=== PATIENT | male | born 1960 | race African-American/Black ===

== ENCOUNTER 2023-11-26 20:24 | Inpatient (IN) | payer OTHER ==
[2023-11-26] MEDS ORDERED: FAMOTIDINE 20 MG/50 ML IVPB 20 MG/50 ML MG IVPB ONE (21:30)
[2023-11-26] MEDS ORDERED: ACETAMINOPHEN INJECTION 100 ML IVPB ONE (21:30)
[2023-11-26] MEDS: ACETAMINOPHEN 1000 MG/100 ML BAG IVPB ONE (21:51)
[2023-11-26] MEDS: PANTOPRAZOLE SODIUM 40 MG VIAL IVPUSH ONE (21:52)
[2023-11-26 21:58] LABS: BASO % 0.6 % (0-2.0); EOS % 1.1 % (0-4.5); HEMATOCRIT 30.9 % (35.4-49); HEMOGLOBIN 10.3 GM/dL (11.7-16.9); LYMPH % 51.7 % (8-40); MCH 27.5 pg (25.7-33.7); MCHC 33.2 g/dl (32.0-35.9); MEAN CELL VOLUME 82.7 fl (80-96); MEAN PLT VOLUME 8.9 fl (7.5-11.1); MONO % 9.9 % (3.8-10.2); NEUT % 36.7 % (42.8-82.8); PLATELET COUNT 190 10^3/uL (134-434); RBC 3.74 M/mm3 (4.00-5.60); RDW 14.7 % (11.9-15.9); WHITE BLOOD COUNT 4.6 K/mm3 (4.0-10.0)
[2023-11-26 22:04] LABS: INR 1.12 (0.83-1.09)
[2023-11-26 22:07] LABS: ACTIVATED PTT 31.1 SECONDS (25.2-36.5)
[2023-11-26 22:17] LABS: POTASSIUM 4.1 mmol/L (3.5-5.1)
[2023-11-26 22:19] LABS: ALBUMIN 2.9 g/dl (3.4-5.0); BLOOD UREA NITROGEN 16.5 mg/dL (7-18); CALCIUM 8.4 mg/dL (8.5-10.1); MAGNESIUM 1.9 mg/dL (1.8-2.4)
[2023-11-26 22:22] LABS: CREATININE 0.9 mg/dL (0.55-1.3)
[2023-11-26 22:24] LABS: BILIRUBIN,TOTAL 0.2 mg/dL (0.2-1); TOT PROT 6.8 g/dl (6.4-8.2)
[2023-11-26] MEDS: FAMOTIDINE 20 MG/50 ML IVPB 20 MG/50 ML MG IVPB ONE ×2 (22:34)
[2023-11-27] MEDS: HYDROCORTISONE ACETATE 25 MG/SUPP.RECT RC SCH (00:50)
[2023-11-27 08:05] LABS: POTASSIUM 4.2 mmol/L (3.5-5.1)
[2023-11-27 08:15] LABS: BLOOD UREA NITROGEN 19.9 mg/dL (7-18)
[2023-11-27 08:17] LABS: ALBUMIN 2.6 g/dl (3.4-5.0); CALCIUM 8.4 mg/dL (8.5-10.1)
[2023-11-27 08:19] LABS: MAGNESIUM 1.8 mg/dL (1.8-2.4)
[2023-11-27 08:20] LABS: BILIRUBIN,TOTAL 0.3 mg/dL (0.2-1); CREATININE 0.9 mg/dL (0.55-1.3)
[2023-11-27 08:21] LABS: PHOSPHOROUS 1.9 mg/dL (2.5-4.9); TOT PROT 6.1 g/dl (6.4-8.2)
[2023-11-27 08:32] LABS: BASO % 0.3 % (0-2.0); EOS % 0.9 % (0-4.5); HEMATOCRIT 29.3 % (35.4-49); HEMOGLOBIN 9.7 GM/dL (11.7-16.9); LYMPH % 40.5 % (8-40); MCH 27.5 pg (25.7-33.7); MEAN CELL VOLUME 83.2 fl (80-96); MEAN PLT VOLUME 8.8 fl (7.5-11.1); MONO % 10.7 % (3.8-10.2); NEUT % 47.6 % (42.8-82.8); PLATELET COUNT 202 10^3/uL (134-434); RBC 3.52 M/mm3 (4.00-5.60); RDW 14.5 % (11.9-15.9); RETICULOCYTES 1.36 % (0.5-1.5); WHITE BLOOD COUNT 4.8 K/mm3 (4.0-10.0)
[2023-11-27] MEDS ORDERED: PANTOPRAZOLE SODIUM 40 MG VIAL ONE (09:56)
[2023-11-27] MEDS ORDERED: PANTOPRAZOLE SODIUM 40 MG VIAL IVPUSH SCH (10:00)
[2023-11-27] MEDS: PANTOPRAZOLE SODIUM 40 MG VIAL IVPUSH SCH (10:01)
[2023-11-27] MEDS ORDERED: [UNRECOGNIZED DRUG - OTHER] PO PRN (12:08)
[2023-11-27 12:11] VITALS: BMI 32.2
[2023-11-27 13:02] LABS: BASO % 0.2 % (0-2.0); EOS % 0.6 % (0-4.5); HEMATOCRIT 27.3 % (35.4-49); HEMOGLOBIN 9.2 GM/dL (11.7-16.9); LYMPH % 49.1 % (8-40); MCH 27.7 pg (25.7-33.7); MCHC 33.8 g/dl (32.0-35.9); MEAN CELL VOLUME 82.1 fl (80-96); MEAN PLT VOLUME 8.2 fl (7.5-11.1); MONO % 8.4 % (3.8-10.2); NEUT % 41.7 % (42.8-82.8); PLATELET COUNT 202 10^3/uL (134-434); RBC 3.32 M/mm3 (4.00-5.60); RDW 14.6 % (11.9-15.9); WHITE BLOOD COUNT 4.3 K/mm3 (4.0-10.0)
[2023-11-27] MEDS: PANTOPRAZOLE 40 MG TABLET PO SCH (21:26)
[2023-11-27] MEDS: ACETAMINOPHEN 1000 MG/100 ML BAG IVPB ONE (22:03)
[2023-11-27] MEDS: LACTATED RINGERS SOLUTION 1,000 ML/1,000 ML INFUS.BAG IV SCH (23:05)
[2023-11-27] MEDS: NAPH,MB-DB/K PH,MBDB POWDER PACKET PO ONE (23:05)
[2023-11-27] MEDS ORDERED: PANTOPRAZOLE 20 MG TABLET PO PRN (23:32)
[2023-11-28 09:42] LABS: BASO % 0.3 % (0-2.0); EOS % 0.8 % (0-4.5); HEMATOCRIT 24.5 % (35.4-49); HEMOGLOBIN 8.2 GM/dL (11.7-16.9); LYMPH % 36.9 % (8-40); MCH 27.7 pg (25.7-33.7); MCHC 33.4 g/dl (32.0-35.9); MEAN CELL VOLUME 82.9 fl (80-96); MEAN PLT VOLUME 9.1 fl (7.5-11.1); MONO % 8.8 % (3.8-10.2); NEUT % 53.2 % (42.8-82.8); PLATELET COUNT 201 10^3/uL (134-434); RBC 2.96 M/mm3 (4.00-5.60); RDW 14.6 % (11.9-15.9); WHITE BLOOD COUNT 5.3 K/mm3 (4.0-10.0)
[2023-11-28 10:00] LABS: POTASSIUM 4.3 mmol/L (3.5-5.1)
[2023-11-28 10:02] LABS: CALCIUM 8.1 mg/dL (8.5-10.1)
[2023-11-28 10:03] LABS: BLOOD UREA NITROGEN 19.9 mg/dL (7-18)
[2023-11-28 10:06] LABS: CREATININE 0.9 mg/dL (0.55-1.3)
[2023-11-28] MEDS: FINASTERIDE 5 MG TABLET (FP) PO SCH (10:37)
[2023-11-28] MEDS: TAMSULOSIN HCL 0.4 MG CAP PO SCH (10:37)
[2023-11-28] MEDS: amLODIPine BESYLATE 5 MG TABLET (FP) PO SCH (10:38)
[2023-11-28 15:35] LABS: HEMATOCRIT 24.8 % (35.4-49); HEMOGLOBIN 8.2 GM/dL (11.7-16.9); MCH 27.8 pg (25.7-33.7); MCHC 33.2 g/dl (32.0-35.9); MEAN CELL VOLUME 83.8 fl (80-96); PLATELET COUNT 207 10^3/uL (134-434); RBC 2.95 M/mm3 (4.00-5.60); RDW 14.6 % (11.9-15.9); WHITE BLOOD COUNT 7.4 K/mm3 (4.0-10.0)
[2023-11-28] MEDS: IRON SUCROSE INJECTION 200 MG in SODIUM CHLORIDE 90 ML IVPB ONE (15:46)
[2023-11-29 08:56] LABS: BASO % 0.3 % (0-2.0); EOS % 0.4 % (0-4.5); HEMATOCRIT 20.4 % (35.4-49); LYMPH % 25.6 % (8-40); MCH 28.3 pg (25.7-33.7); MCHC 34.2 g/dl (32.0-35.9); MEAN CELL VOLUME 82.8 fl (80-96); MEAN PLT VOLUME 8.8 fl (7.5-11.1); MONO % 11.3 % (3.8-10.2); NEUT % 62.4 % (42.8-82.8); PLATELET COUNT 198 10^3/uL (134-434); RBC 2.47 M/mm3 (4.00-5.60); RDW 14.5 % (11.9-15.9); WHITE BLOOD COUNT 6.5 K/mm3 (4.0-10.0)
[2023-11-29 09:03] LABS: POTASSIUM 4.1 mmol/L (3.5-5.1)
[2023-11-29 09:07] LABS: CALCIUM 7.8 mg/dL (8.5-10.1)
[2023-11-29 09:09] LABS: BLOOD UREA NITROGEN 18.2 mg/dL (7-18)
[2023-11-29 12:48] LABS: HEMATOCRIT 21.7 % (35.4-49); MCH 27.3 pg (25.7-33.7); MCHC 32.5 g/dl (32.0-35.9); MEAN PLT VOLUME 8.2 fl (7.5-11.1); PLATELET COUNT 210 10^3/uL (134-434); RBC 2.58 M/mm3 (4.00-5.60); RDW 14.5 % (11.9-15.9); WHITE BLOOD COUNT 7.6 K/mm3 (4.0-10.0)
[2023-11-29] MEDS: ACETAMINOPHEN 325 MG TABLET (FP) PO ONE (15:42)
[2023-11-29] MEDS: SODIUM CHLORIDE 500 ML IV STA (17:38)
[2023-11-29] MEDS: ACETAMINOPHEN 325 MG TABLET (FP) PO PRN (18:09)
[2023-11-29 21:07] LABS: BASO % 0.3 % (0-2.0); EOS % 0.8 % (0-4.5); HEMATOCRIT 17.7 % (35.4-49); LYMPH % 26.9 % (8-40); MCH 28.2 pg (25.7-33.7); MEAN CELL VOLUME 83.1 fl (80-96); MEAN PLT VOLUME 8.4 fl (7.5-11.1); MONO % 11.6 % (3.8-10.2); NEUT % 60.4 % (42.8-82.8); PLATELET COUNT 179 10^3/uL (134-434); RBC 2.12 M/mm3 (4.00-5.60); RDW 14.4 % (11.9-15.9); WHITE BLOOD COUNT 7.5 K/mm3 (4.0-10.0)
[2023-11-30] MEDS: ACETAMINOPHEN 1000 MG/100 ML BAG IVPB ONE (02:40)
[2023-11-30 08:31] LABS: POTASSIUM 3.8 mmol/L (3.5-5.1)
[2023-11-30 08:33] LABS: BASO % 0.5 % (0-2.0); EOS % 0.5 % (0-4.5); HEMATOCRIT 21.1 % (35.4-49); HEMOGLOBIN 7.2 GM/dL (11.7-16.9); LYMPH % 29.9 % (8-40); MCH 28.4 pg (25.7-33.7); MCHC 34.4 g/dl (32.0-35.9); MEAN CELL VOLUME 82.6 fl (80-96); MEAN PLT VOLUME 8.4 fl (7.5-11.1); MONO % 10.7 % (3.8-10.2); NEUT % 58.4 % (42.8-82.8); PLATELET COUNT 214 10^3/uL (134-434); RBC 2.55 M/mm3 (4.00-5.60); RDW 14.9 % (11.9-15.9); WHITE BLOOD COUNT 7.1 K/mm3 (4.0-10.0)
[2023-11-30 08:34] LABS: CALCIUM 7.9 mg/dL (8.5-10.1)
[2023-11-30 08:35] LABS: ALBUMIN 2.6 g/dl (3.4-5.0); BLOOD UREA NITROGEN 13.8 mg/dL (7-18)
[2023-11-30 08:38] LABS: CREATININE 1.1 mg/dL (0.55-1.3)
[2023-11-30 08:39] LABS: TOT PROT 5.7 g/dl (6.4-8.2)
[2023-11-30 08:40] LABS: BILIRUBIN,TOTAL 0.2 mg/dL (0.2-1)
[2023-11-30] MEDS ORDERED: KETAMINE HCL 200 MG/20 ML VIAL ONE (09:05)
[2023-11-30] MEDS: SODIUM CHLORIDE 1,000 ML IV SCH (10:38)
[2023-11-30] MEDS: LACTATED RINGERS SOLUTION 1,000 ML IV SCH (13:25)
[2023-11-30 20:40] LABS: BASO % 0.6 % (0-2.0); EOS % 0.7 % (0-4.5); HEMATOCRIT 22.6 % (35.4-49); HEMOGLOBIN 7.6 GM/dL (11.7-16.9); LYMPH % 29.1 % (8-40); MCH 27.9 pg (25.7-33.7); MCHC 33.5 g/dl (32.0-35.9); MEAN CELL VOLUME 83.3 fl (80-96); MEAN PLT VOLUME 8.5 fl (7.5-11.1); MONO % 10.2 % (3.8-10.2); NEUT % 59.4 % (42.8-82.8); PLATELET COUNT 197 10^3/uL (134-434); RBC 2.71 M/mm3 (4.00-5.60); RDW 15.6 % (11.9-15.9); WHITE BLOOD COUNT 7.5 K/mm3 (4.0-10.0)
[2023-12-01 08:53] LABS: BASO % 0.6 % (0-2.0); EOS % 0.4 % (0-4.5); HEMATOCRIT 22.5 % (35.4-49); HEMOGLOBIN 7.5 GM/dL (11.7-16.9); LYMPH % 26.2 % (8-40); MCH 27.9 pg (25.7-33.7); MCHC 33.5 g/dl (32.0-35.9); MEAN CELL VOLUME 83.2 fl (80-96); MEAN PLT VOLUME 8.2 fl (7.5-11.1); MONO % 12.6 % (3.8-10.2); NEUT % 60.2 % (42.8-82.8); PLATELET COUNT 215 10^3/uL (134-434); RDW 15.5 % (11.9-15.9); WHITE BLOOD COUNT 6.2 K/mm3 (4.0-10.0)
[2023-12-01 09:05] LABS: POTASSIUM 4.1 mmol/L (3.5-5.1)
[2023-12-01 09:07] LABS: CALCIUM 8.2 mg/dL (8.5-10.1)
[2023-12-01 09:08] LABS: BLOOD UREA NITROGEN 9.4 mg/dL (7-18)
[2023-12-01 09:11] LABS: CREATININE 1.2 mg/dL (0.55-1.3)
[2023-12-01] MEDS: PEG 3350/NA SULF BICARB CL/KCL 4000 ML SOLN.RECON PO ONE (17:15)
[2023-12-01] MEDS: BISACODYL 5 MG TABLET.DR (FP) PO ONE (17:15)
[2023-12-01 22:16] LABS: HEMATOCRIT 21.6 % (35.4-49); HEMOGLOBIN 7.4 GM/dL (11.7-16.9); MCH 28.4 pg (25.7-33.7); MCHC 34.2 g/dl (32.0-35.9); MEAN CELL VOLUME 83.3 fl (80-96); MEAN PLT VOLUME 8.1 fl (7.5-11.1); PLATELET COUNT 237 10^3/uL (134-434); RDW 15.5 % (11.9-15.9); WHITE BLOOD COUNT 6.1 K/mm3 (4.0-10.0)
[2023-12-02 11:13] LABS: BASO % 0.4 % (0-2.0); EOS % 0.5 % (0-4.5); HEMATOCRIT 24.7 % (35.4-49); LYMPH % 23.2 % (8-40); MCH 27.3 pg (25.7-33.7); MCHC 32.5 g/dl (32.0-35.9); MEAN CELL VOLUME 84.2 fl (80-96); MEAN PLT VOLUME 7.8 fl (7.5-11.1); MONO % 14.8 % (3.8-10.2); NEUT % 61.1 % (42.8-82.8); PLATELET COUNT 286 10^3/uL (134-434); RBC 2.93 M/mm3 (4.00-5.60); RDW 16.2 % (11.9-15.9); WHITE BLOOD COUNT 5.8 K/mm3 (4.0-10.0)
[2023-12-02 11:35] LABS: POTASSIUM 4.1 mmol/L (3.5-5.1)
[2023-12-02 11:41] LABS: CALCIUM 8.2 mg/dL (8.5-10.1)
[2023-12-02 11:42] LABS: INR 1.11 (0.83-1.09); PROTHROMBIN TIME (PATIENT) 12.9 SEC (9.7-13.0)
[2023-12-02 11:45] LABS: CREATININE 1.1 mg/dL (0.55-1.3)
[2023-12-02 12:44] VITALS: RESP 18
[2023-12-03 08:04] LABS: BASO % 0.4 % (0-2.0); EOS % 0.5 % (0-4.5); HEMATOCRIT 23.8 % (35.4-49); HEMOGLOBIN 8.2 GM/dL (11.7-16.9); LYMPH % 28.8 % (8-40); MCH 28.8 pg (25.7-33.7); MCHC 34.4 g/dl (32.0-35.9); MEAN CELL VOLUME 83.7 fl (80-96); MEAN PLT VOLUME 7.8 fl (7.5-11.1); MONO % 16.8 % (3.8-10.2); NEUT % 53.5 % (42.8-82.8); PLATELET COUNT 316 10^3/uL (134-434); RBC 2.84 M/mm3 (4.00-5.60); RDW 15.7 % (11.9-15.9); WHITE BLOOD COUNT 5.5 K/mm3 (4.0-10.0)
[2023-12-03 08:25] LABS: POTASSIUM 4.2 mmol/L (3.5-5.1)
[2023-12-03 08:26] LABS: CALCIUM 8.3 mg/dL (8.5-10.1)
[2023-12-03 08:28] LABS: BLOOD UREA NITROGEN 6.3 mg/dL (7-18)
[2023-12-03 08:31] LABS: CREATININE 1.1 mg/dL (0.55-1.3)
[2023-12-03 14:51] VITALS: BP 106/72; PULSE 85; TEMP 98.8
== END 2023-12-03 18:53 | disposition home or self-care (01) | DRG 813 ==
LOC: JER 20:24 → JERBED 23:47 → OBSVTOIN 11-27 01:06 → J7W 11-27 11:33
PROVIDERS: ADMIT Internal Medicine; ATTEND Nurse Practitioner
PROC: 30233N1 Transfusion of Nonautologous Red Blood Cells into Peripheral Vein, Percutaneous Approach (ICD-10-PCS; 2023-11-29)
PROC: 0DB68ZX Excision of Stomach, Via Natural or Artificial Opening Endoscopic, Diagnostic (ICD-10-PCS; 2023-11-30)
PROC: 0DBM8ZX Excision of Descending Colon, Via Natural or Artificial Opening Endoscopic, Diagnostic (ICD-10-PCS; 2023-12-02)
PROC: 0DBK8ZX Excision of Ascending Colon, Via Natural or Artificial Opening Endoscopic, Diagnostic (ICD-10-PCS; principal; 2023-12-02 11:00)
DX: D68.32 Hemorrhagic disorder due to extrinsic circulating anticoagulants (principal); K25.0 Acute gastric ulcer with hemorrhage; K25.4 Chronic or unspecified gastric ulcer with hemorrhage; D62 Acute posthemorrhagic anemia; T39.315A Adverse effect of propionic acid derivatives, initial encounter; I10 Essential (primary) hypertension; N40.0 Benign prostatic hyperplasia without lower urinary tract symptoms; G43.909 Migraine, unspecified, not intractable, without status migrainosus; D64.9 Anemia, unspecified; K64.8 Other hemorrhoids; D12.2 Benign neoplasm of ascending colon; D12.4 Benign neoplasm of descending colon; K57.30 Diverticulosis of large intestine without perforation or abscess without bleeding; K29.70 Gastritis, unspecified, without bleeding; R50.9 Fever, unspecified; N28.1 Cyst of kidney, acquired; R59.0 Localized enlarged lymph nodes
CPT/HCPCS: 0241U-QW; 36415; 36430; 71045-TC-FY; 74177-TC; 80048; 80053; 82272; 82728; 82962; 83540; 83550; 83605; 83615; 83690; 83735; 84100; 84484; 85025; 85027; 85045; 85610; 85730; 86850; 86900; 86901; 86922; 87040; 87086; 87529; 88305-TC; 93005; 93010; 94010; 94760; 99285-25; G0378; J0131; J1756; P9038; P9058; Q9967